=== PATIENT | female | born 1980 | race Caucasian/White ===

== ENCOUNTER 2016-11-14 15:19 | Emergency (ER) | payer OTHER ==
[2016-11-14] MEDS ORDERED: SODIUM CHLORIDE 0.9% 1,000 ML IV ONE (16:04)
[2016-11-14] MEDS ORDERED: VANCOMYCIN TROUGH DUE 1 EACH MISC MISCELLANE ONE (16:04)
--- NOTE | 2016-11-14 16:04 | ED ---
Skin/Abscess/FB HPI - General Chief complaint: Skin/Abscess/Foreign Body Stated complaint: post op infection Source: patient Mode of arrival: ambulatory Limitations: no limitations - History of Present Illness Initial comments: Patient is a 36-year-old female who presents for evaluation for concern for abscess underneath her left breast. Possible cluster as below. Patient had a breast augmentation on 10/14/2016. She stated that this was more of a left versus a breast implant. Over the last couple of days she's noted purulent drainage from the left breast at the incision site. It is open and actively draining. She was having chills and decreased appetite. No fevers. She called her plastic surgeon who recommended Keflex. She's been compliant with her for the last 3 days but no improvement. Pain is worsening and redness is worsening. The plastic surgeon recommended coming into the emergency department for IV antibiotics. She's had a few episodes of diarrhea. She has urinary symptoms at baseline secondary to interstitial cystitis. Patient otherwise denies headaches, URI symptoms, shortness breath, cough, chest pain, nausea, vomiting. - Related Data Home Medications Medication Instructions Recorded Confirmed Albuterol Inhaler [Ventolin Hfa 1 - 2 puff INHALATION RT-Q6H PRN 11/14/16 Inhaler] Cephalexin [Keflex] 500 mg PO TID 11/14/16 11/14/16 Fluconazole [Diflucan] 150 mg PO ONCE 11/14/16 11/14/16 L.acidoph,Paracasei, B.lactis 1 cap PO DAILY 11/14/16 11/14/16 [Probiotic] Lansoprazole [Prevacid] 30 mg PO DAILY 11/14/16 11/14/16 Previous Rx's Medication Instructions Recorded Ciprofloxacin HCl [Cipro] 500 mg PO Q12HR 7 Days 11/14/16 Clindamycin [Cleocin] 450 mg PO Q6H 7 Days 11/14/16 Fluconazole [Diflucan] 200 mg PO DAILY #1 tab 11/14/16 Allergies Allergy/AdvReac Type Severity Reaction Status Date / Time Iodinated Contrast Media - Allergy Anaphylaxis Verified 11/14/16 16:03 Oral and metoclopramide [From Reglan] AdvReac Severe Verified 11/14/16 16:03 Anxiety tomato AdvReac Interstitial Verified 11/14/16 16:03 Cystitis Review of Systems ROS Statement: Those systems with pertinent positive or pertinent negative responses have been documented in the HPI. ROS Other: All systems not noted in ROS Statement are negative. Past Medical History Additional Past Medical History / Comment(s): interstitial cystitis History of Any Multi-Drug Resistant Organisms: None Reported Past Surgical History: Adenoidectomy, Section, Cholecystectomy, Hysterectomy, Tonsillectomy Additional Past Surgical History / Comment(s): Breast augmentation; Breast lift ; Liposuction; Rhinoplasty Past Psychological History: No Psychological Hx Reported Smoking Status: Never smoker Past Alcohol Use History: None Reported Past Drug Use History: None Reported General Exam Limitations: no limitations General appearance: alert, in no apparent distress, other (Appears anxious. Tearful at times.) Head exam: Present: atraumatic, normocephalic, normal inspection Eye exam: Present: normal appearance, PERRL, EOMI. Absent: scleral icterus, conjunctival injection, periorbital swelling ENT exam: Present: normal exam, mucous membranes moist Neck exam: Present: normal inspection. Absent: tenderness, meningismus, lymphadenopathy Respiratory exam: Present: normal lung sounds bilaterally. Absent: respiratory distress, wheezes, rales, rhonchi, stridor Cardiovascular Exam: Present: regular rate, normal rhythm, normal heart sounds. Absent: systolic murmur, diastolic murmur, rubs, gallop, clicks GI/Abdominal exam: Present: soft, normal bowel sounds. Absent: distended, tenderness, guarding, rebound, rigid Extremities exam: Present: normal inspection, full ROM, normal capillary refill. Absent: tenderness, pedal edema, joint swelling, calf tenderness Back exam: Present: normal inspection Neurological exam: Present: alert, oriented X3, CN II-XII intact Psychiatric exam: Present: normal affect, normal mood, other (Left breast has a 4 cm x 3 cm oval-shaped fluctuance consistent with an abscess. It is open and actively draining. Tender to the touch. Warm to the touch.) Skin exam: Present: warm, dry, intact, normal color. Absent: rash Course Vital Signs 11/14/16 11/14/16 15:21 17:41 Temperature 98.8 F 98.1 F Pulse Rate 65 70 Respiratory 18 16 Rate Blood Pressure 132/94 99/54 O2 Sat by Pulse 100 100 Oximetry Medical Decision Making - Medical Decision Making Patient is a 36-year-old female who presents for evaluation for concern for abscess underneath her left breast secondary to a recent sick breast augmentation. Hemodynamically stable at this time. We'll order basic labs with a lactic acid, IV fluid bolus, 1 dose of vancomycin. 1700:Reviewed laboratory studies. Unremarkable. Called the pt's plastic surgeon , Dr. Bird ([phone]), left message with request to return call for further recommendations. 1800: Awaiting plastic surgeon return phone call. Vancomycin running. Rx bactrim. 1814:Spoke with Dr. Bird - recommending 7 day course of clindamycin and ciprofloxacin. No bactrim. OK for dose of vancomycin. Dry gauze over lesion on left breast. Does not believe it is an abscess per se but likely fat necrosis which is apparently normal. Recommending follow up in the office either tomorrow or Friday. Updated pt. requesting a tablet of Diflucan as she is prone teeth infections. Printed rx. Stable for discharge home after completion of vancomycin. Discussed signs and symptoms on when to return to the emergency department for further evaluation. Comfortable discharge home and follow-up with plastic surgeon next 24-48 hours. - Lab Data Result diagrams: 11/14/16 16:19 11/14/16 16:19 Lab Results 11/14/16 11/14/16 11/14/16 Range/Units 16:19 16:19 16:19 WBC 8.0 (3.8-10.6) k/uL RBC 4.63 (3.80-5.40) m/uL Hgb 14.1 (11.4-16.0) gm/dL Hct 43.0 (34.0-46.0) % MCV 93.0 (80.0-100.0) fL MCH 30.5 (25.0-35.0) pg MCHC 32.8 (31.0-37.0) g/dL RDW 13.4 (11.5-15.5) % Plt Count 241 (150-450) k/uL Neutrophils % 67 % Lymphocytes % 24 % Monocytes % 6 % Eosinophils % 1 % Basophils % 0 % Neutrophils # 5.3 (1.3-7.7) k/uL Lymphocytes # 2.0 (1.0-4.8) k/uL Monocytes # 0.5 (0-1.0) k/uL Eosinophils # 0.1 (0-0.7) k/uL Basophils # 0.0 (0-0.2) k/uL Sodium 142 (137-145) mmol/L Potassium 4.2 (3.5-5.1) mmol/L Chloride 107 (98-107) mmol/L Carbon Dioxide 27 (22-30) mmol/L Anion Gap 8 mmol/L BUN 15 (7-17) mg/dL Creatinine 0.91 (0.52-1.04) mg/dL Est GFR (MDRD) Af Amer >60 (>60 ml/min/1.73 sqM) Est GFR (MDRD) Non-Af >60 (>60 ml/min/1.73 sqM) Glucose 83 (74-99) mg/dL Plasma Lactic Acid Eric 1.0 (0.7-2.0) mmol/L Calcium 8.8 (8.4-10.2) mg/dL Total Bilirubin 1.0 (0.2-1.3) mg/dL AST 24 (14-36) U/L ALT 82 H (9-52) U/L Alkaline Phosphatase 48 (38-126) U/L Total Protein 7.3 (6.3-8.2) g/dL Albumin 4.1 (3.5-5.0) g/dL Disposition Clinical Impression: Wound infection after surgery Disposition: HOME SELF-CARE Condition: Good Instructions: Abscess (ED) Additional Instructions: Follow up with your plastic surgeon, Dr. Kong, within the next 24 hours. Prescriptions: Ciprofloxacin HCl [Cipro] 500 mg PO Q12HR 7 Days Clindamycin [Cleocin] 450 mg PO Q6H 7 Days Fluconazole [Diflucan] 200 mg PO DAILY #1 tab Referrals: None,Stated [Primary Care Provider] - 1-2 days
[2016-11-14 16:30] LABS: Basophils % (A) 0 %; CH 30.5; Eosinophils # (A) 0.1 k/uL (0-0.7); Eosinophils % (A) 1 %; HDW 2.23; HGB 14.1 gm/dL (11.4-16.0); Luc # (Auto) 0.13; Luc % (Auto) 2; Lymphocytes % (A) 24 %; MCH 30.5 pg (25.0-35.0); MCHC 32.8 g/dL (31.0-37.0); Mean Platelet Volume 7.2; Monocytes # (A) 0.5 k/uL (0-1.0); Monocytes % (A) 6 %; Neutrophils # (A) 5.3 k/uL (1.3-7.7); Neutrophils % (A) 67 %; RBC 4.63 m/uL (3.80-5.40); RDW 13.4 % (11.5-15.5); WBC (Perox) 8.21
[2016-11-14 16:38] LABS: ALT 82 U/L (9-52); AST 24 U/L (14-36); Alkaline Phosphatase 48 U/L (38-126); Anion Gap 8 mmol/L; Blood Urea Nitrogen 15 mg/dL (7-17); Calcium 8.8 mg/dL (8.4-10.2); Carbon Dioxide 27 mmol/L (22-30); Chloride 107 mmol/L (98-107); Glucose 83 mg/dL (74-99); Non-African American GFR(MDRD) >60 (>60 ml/min/1.73 sqM); Potassium 4.2 mmol/L (3.5-5.1); Sodium 142 mmol/L (137-145); Total Protein 7.3 g/dL (6.3-8.2)
[2016-11-14] MEDS ORDERED: IV VANCOMYCIN PER PHARMACY 1 EACH MISC MISCELLANE PRN (16:49)
[2016-11-14] MEDS ORDERED: VANCOMYCIN 1,750 MG in SODIUM CHLORIDE 0.9% 250 ML IVPB STA (16:53)
[2016-11-14] MEDS ORDERED: KETOROLAC 30 MG/ML 1 ML VIAL IVP STA (17:45)
[2016-11-14 17:48] VITALS: RESP 16; TEMP 98.1
[2016-11-14 19:23] VITALS: BP 113/59; PULSE 64
[2016-11-15] MEDS ORDERED: VANCOMYCIN 1,250 MG in SODIUM CHLORIDE 0.9% 250 ML IVPB SCH ×2
== END 2016-11-14 19:23 | disposition home or self-care (01) ==
LOC: EC 15:19
DX: T81.4XXA Infection following a procedure, initial encounter (principal); Z79.899 Other long term (current) drug therapy; Z91.041 Radiographic dye allergy status; Z91.018 Allergy to other foods; Z88.8 Allergy status to other drugs, medicaments and biological substances
CPT/HCPCS: 36415; 80053; 83605; 85025; 87040; 99283; 96365; 96366; 96375; 96361; J3370; J1885

== ENCOUNTER 2017-04-25 19:56 | Emergency (ER) | payer OTHER ==
[2017-04-25] MEDS ORDERED: SODIUM CHLORIDE 0.9% 500 ML IV STA (20:42)
--- NOTE | 2017-04-25 20:47 | ED ---
General Adult HPI - General Chief complaint: Dizziness Stated complaint: not feeling well Time Seen by Provider: 04/25/17 20:17 Source: patient Mode of arrival: ambulatory Limitations: no limitations - History of Present Illness Initial comments: This patient is a 36-year-old woman who presents with a constellation of symptoms. She states that she has not been feeling like her usual self. She has been having generalized fatigue and also a feeling like her limbs or heavy. She states when she is in bed she doesn't want to get out of bed and that she feels like she has to sleep all day. She denies any focality of the symptoms. The symptoms have been going on for a number of days, up to a couple of weeks. She states that it may be related to changes in her medications. She states her doctor has started her on progesterone and also on "adrenal support." The patient states that she has had a workup for interstitial cystitis and not feeling well and was told that a number of her hormone levels are off. She states that she also had a recent upper respiratory infection and states that she doesn't feel like she ever got back to baseline. She states that the cough is nearly cleared, and most of the congestion is gone but she does have a little bit of postnasal drip. She denies fever or chills. She denies nausea or vomiting. She has had she feels some diarrhea since starting the progesterone. She had 3 bowel movements today which she describes as soft but not seeing any blood or dark tarry material. Patient denies any change in urination, but states there is also some discomfort related to interstitial cystitis. -: days(s) Consistency: constant Improves with: none Worsens with: none - Related Data Home Medications Medication Instructions Recorded Confirmed Acetaminophen Tab [Tylenol Tab] 650 mg PO Q6H PRN 04/25/17 04/25/17 Progesterone, Micronized 1 tab PO DAILY 04/25/17 04/25/17 [Progesterone] Allergies Allergy/AdvReac Type Severity Reaction Status Date / Time Iodinated Contrast- Oral and Allergy Anaphylaxis Verified 04/25/17 20:51 IV Dye [Iodinated Contrast Media - Oral and] metoclopramide [From Reglan] AdvReac Severe Verified 04/25/17 20:51 Anxiety tomato AdvReac Interstitial Verified 04/25/17 20:51 Cystitis Review of Systems ROS Statement: Those systems with pertinent positive or pertinent negative responses have been documented in the HPI. ROS Other: All systems not noted in ROS Statement are negative. Constitutional: Reports: as per HPI, weakness. Denies: fever, chills, weight change Eyes: Denies: vision change Respiratory: Denies: cough, dyspnea Cardiovascular: Denies: chest pain, palpitations, edema, syncope Endocrine: Reports: fatigue Gastrointestinal: Reports: diarrhea. Denies: abdominal pain, nausea, vomiting Genitourinary: Reports: dysuria. Denies: hematuria Musculoskeletal: Denies: back pain Skin: Denies: rash Neurological: Denies: headache, weakness, numbness, paresthesias Past Medical History Additional Past Medical History / Comment(s): interstitial cystitis History of Any Multi-Drug Resistant Organisms: None Reported Past Surgical History: Adenoidectomy, Section, Cholecystectomy, Hysterectomy, Tonsillectomy Additional Past Surgical History / Comment(s): Breast augmentation; Breast lift ; Liposuction; Rhinoplasty Past Psychological History: No Psychological Hx Reported Smoking Status: Never smoker Past Alcohol Use History: None Reported Past Drug Use History: None Reported General Exam Limitations: no limitations General appearance: alert, in no apparent distress Head exam: Present: atraumatic, normocephalic Eye exam: Present: normal appearance. Absent: scleral icterus, conjunctival injection ENT exam: Present: normal oropharynx, mucous membranes moist Respiratory exam: Present: normal lung sounds bilaterally. Absent: respiratory distress, wheezes, rales, rhonchi, stridor Cardiovascular Exam: Present: regular rate, normal rhythm, normal heart sounds. Absent: systolic murmur, diastolic murmur, rubs, gallop GI/Abdominal exam: Present: soft. Absent: distended, tenderness, guarding, rebound, mass Extremities exam: Present: normal inspection, normal capillary refill. Absent: pedal edema, calf tenderness Back exam: Present: normal inspection. Absent: CVA tenderness (R), CVA tenderness (L) Neurological exam: Present: alert. Absent: motor sensory deficit Skin exam: Present: warm, dry, intact, normal color. Absent: rash Course Vital Signs 04/25/17 04/25/17 20:08 22:13 Temperature 98.6 F 98.4 F Pulse Rate 89 66 Respiratory 16 18 Rate Blood Pressure 137/62 113/65 O2 Sat by Pulse 98 99 Oximetry EKG Findings - EKG Results: EKG: interpreted by ERMD, sinus rhythm (With sinus arrhythmia), normal axis, normal QRS, normal ST/T, no acute changes EKG shows: bradycardia (Rate approximately 56 bpm) - CO, Pacemaker, Normal: Normal tracing: normal tracing Medical Decision Making - Lab Data Result diagrams: 04/25/17 21:13 04/25/17 21:13 Lab Results 04/25/17 04/25/17 04/25/17 Range/Units 20:50 21:13 21:13 WBC 11.7 H (3.8-10.6) k/uL RBC 5.02 (3.80-5.40) m/uL Hgb 15.4 (11.4-16.0) gm/dL Hct 47.0 H (34.0-46.0) % MCV 93.8 (80.0-100.0) fL MCH 30.7 (25.0-35.0) pg MCHC 32.7 (31.0-37.0) g/dL RDW 12.6 (11.5-15.5) % Plt Count 304 (150-450) k/uL Neutrophils % 78 % Lymphocytes % 17 % Monocytes % 4 % Eosinophils % 0 % Basophils % 0 % Neutrophils # 9.1 H (1.3-7.7) k/uL Lymphocytes # 1.9 (1.0-4.8) k/uL Monocytes # 0.5 (0-1.0) k/uL Eosinophils # 0.0 (0-0.7) k/uL Basophils # 0.0 (0-0.2) k/uL Sodium 140 (137-145) mmol/L Potassium 4.0 (3.5-5.1) mmol/L Chloride 104 (98-107) mmol/L Carbon Dioxide 25 (22-30) mmol/L Anion Gap 11 mmol/L BUN 8 (7-17) mg/dL Creatinine 0.82 (0.52-1.04) mg/dL Est GFR (MDRD) Af Amer >60 (>60 ml/min/1.73 sqM) Est GFR (MDRD) Non-Af >60 (>60 ml/min/1.73 sqM) Glucose 80 (74-99) mg/dL Calcium 9.2 (8.4-10.2) mg/dL Total Bilirubin 0.7 (0.2-1.3) mg/dL AST 26 (14-36) U/L ALT 32 (9-52) U/L Alkaline Phosphatase 69 (38-126) U/L Total Protein 7.8 (6.3-8.2) g/dL Albumin 4.4 (3.5-5.0) g/dL Urine Color Colorless Urine Appearance Clear (Clear) Urine pH 5.5 (5.0-8.0) Ur Specific [place] 1.001 (1.001-1.035) Urine Protein Negative (Negative) Urine Glucose (UA) Negative (Negative) Urine Ketones Negative (Negative) Urine Blood Negative (Negative) Urine Nitrite Negative (Negative) Urine Bilirubin Negative (Negative) Urine Urobilinogen <2.0 (<2.0) mg/dL Ur Leukocyte Esterase Negative (Negative) Disposition Clinical Impression: Fatigue Disposition: HOME SELF-CARE Condition: Good Instructions: Fatigue (ED) Referrals: Denise Coon MD [Primary Care Provider] - 1-2 days
[2017-04-25 20:59] LABS: Appearance,Urine Clear (Clear); Bilirubin,Urine Negative (Negative); Glucose,Urine (UA) Negative (Negative); Ketones,Urine Negative (Negative); Leukocyte Esterase,Urine Negative (Negative); Nitrite,Urine Negative (Negative); PH, Urine 5.5 (5.0-8.0); Protein,Urine Negative (Negative); UA Billing (MACRO vs. MICRO) CHEM; Urobilinogen,Urine <2.0 mg/dL (<2.0)
[2017-04-25 21:07] LABS: Specific Gravity,Urine 1.001 (1.001-1.035)
[2017-04-25] MEDS ORDERED: KETOROLAC 30 MG/ML 1 ML VIAL IVP STA (21:35)
[2017-04-25 21:38] LABS: Basophils % (A) 0 %; CHCM 33.2; Eosinophils % (A) 0 %; HDW 2.38; HGB 15.4 gm/dL (11.4-16.0); Luc # (Auto) 0.15; Luc % (Auto) 1; Lymphocytes # (A) 1.9 k/uL (1.0-4.8); Lymphocytes % (A) 17 %; MCH 30.7 pg (25.0-35.0); MCHC 32.7 g/dL (31.0-37.0); MCV 93.8 fL (80.0-100.0); Monocytes # (A) 0.5 k/uL (0-1.0); Monocytes % (A) 4 %; Neutrophils # (A) 9.1 k/uL (1.3-7.7); Neutrophils % (A) 78 %; RBC 5.02 m/uL (3.80-5.40); RDW 12.6 % (11.5-15.5); WBC 11.7 k/uL (3.8-10.6); WBC (Perox) 11.61
[2017-04-25 21:56] LABS: ALT 32 U/L (9-52); AST 26 U/L (14-36); Alkaline Phosphatase 69 U/L (38-126); Anion Gap 11 mmol/L; Blood Urea Nitrogen 8 mg/dL (7-17); Calcium 9.2 mg/dL (8.4-10.2); Carbon Dioxide 25 mmol/L (22-30); Chloride 104 mmol/L (98-107); Glucose 80 mg/dL (74-99); Non-African American GFR(MDRD) >60 (>60 ml/min/1.73 sqM); Sodium 140 mmol/L (137-145); Total Bilirubin 0.7 mg/dL (0.2-1.3); Total Protein 7.8 g/dL (6.3-8.2)
[2017-04-25 22:30] VITALS: BP 122/63; PULSE 67; RESP 16; TEMP 97.4
== END 2017-04-25 22:30 | disposition home or self-care (01) ==
LOC: EC 19:56
DX: R53.83 Other fatigue (principal); R19.7 Diarrhea, unspecified; R00.1 Bradycardia, unspecified; Z90.49 Acquired absence of other specified parts of digestive tract; Z91.018 Allergy to other foods; Z88.8 Allergy status to other drugs, medicaments and biological substances; Z91.041 Radiographic dye allergy status; Z92.23 Personal history of estrogen therapy
CPT/HCPCS: 99284 ×2; 96374 ×2; 96361 ×2; 36415; 93005; 80053; 85025; 81003; J1885

== ENCOUNTER 2018-03-23 01:03 | Emergency (ER) | payer OTHER ==
[2018-03-23] MEDS ORDERED: SODIUM CHLORIDE 0.9% 1,000 ML IV STA (01:30)
--- NOTE | 2018-03-23 01:32 | ED ---
Abdominal Pain HPI - General Chief Complaint: Abdominal Pain Stated Complaint: ABD PAIN Time Seen by Provider: 03/23/18 01:30 Source: patient Mode of arrival: ambulatory Limitations: no limitations - History of Present Illness Initial Comments: Patient is a 37-year-old female with a past medical history of gallstone pancreatitis approximately 10 years ago presents the emergency department today for evaluation of sudden onset burning epigastric abdominal pain radiating to her left flank and back. Patient reports that this pain is identical to her previous episode of pancreatitis. Patient reports nausea but no vomiting, no change in bowel or bladder habits, no hematuria or history of kidney stones. Patient reports that this pain started suddenly this evening, prior to this she had been her usual state of health. She's been eating and drinking her normal diet. Patient does report that she has recently been diagnosed with chronic Lyme disease and is being treated by a specialist in [place]. She reports that she gives herself IM Rocephin 2 times a week, she is on oral Biaxin 2 times daily and reports that she's been given multiple supplements. She states she can't name all of the supplements but that she takes approximately 12 pills in the morning 12 pills at night. She reports that she's been taking these with food but not always a full stomach. Patient denies any history of acid reflux or any GI disease. She has never been seen by superintendent pier for any reason. - Related Data Home Medications Medication Instructions Recorded Confirmed Acetaminophen Tab [Tylenol Tab] 650 mg PO Q6H PRN 04/25/17 04/25/17 Progesterone, Micronized 1 tab PO DAILY 04/25/17 04/25/17 [Progesterone] Allergies Allergy/AdvReac Type Severity Reaction Status Date / Time Iodinated Contrast- Oral and Allergy Anaphylaxis Verified 03/23/18 01:08 IV Dye [Iodinated Contrast Media - Oral and] metoclopramide [From Reglan] AdvReac Severe Verified 03/23/18 01:08 Anxiety tomato AdvReac Interstitial Verified 03/23/18 01:08 Cystitis Review of Systems ROS Statement: Those systems with pertinent positive or pertinent negative responses have been documented in the HPI. ROS Other: All systems not noted in ROS Statement are negative. Past Medical History Additional Past Medical History / Comment(s): interstitial cystitis. lyme disease. pancreatitis. History of Any Multi-Drug Resistant Organisms: None Reported Past Surgical History: Adenoidectomy, Section, Cholecystectomy, Hysterectomy, Tonsillectomy Additional Past Surgical History / Comment(s): Breast augmentation; Breast lift ; Liposuction; Rhinoplasty Past Psychological History: No Psychological Hx Reported Smoking Status: Never smoker Past Alcohol Use History: None Reported Past Drug Use History: None Reported General Exam - General Exam Comments Initial Comments: GENERAL: Patient is well-developed and well-nourished. Patient is nontoxic and well- hydrated and is in mild distress. HENT: Normocephalic, Atraumatic. Neck is soft and supple. No significant lymphadenopathy is noted. Oropharynx is clear. Moist mucous membranes. Neck has full range of motion without eliciting any pain. EYES: The sclera were anicteric and conjunctiva were pink and moist. Extraocular movements were intact and pupils were equal round and reactive to light. Eyelids were unremarkable. PULMONARY: Unlabored respirations. Good breath sounds bilaterally. No audible rales rhonchi or wheezing was noted. CARDIOVASCULAR: There is a regular rate and rhythm without any murmurs gallops or rubs. ABDOMEN: Soft with normal bowel sounds. Mild tenderness to palpation bilateral upper quadrants, tenderness to palpation of the left flank SKIN: Skin is clear with no lesions or rashes and otherwise unremarkable. Multiple tattoos. NEUROLOGIC: Patient is alert and oriented x3. Cranial nerves II through XII are grossly intact. Motor and sensory are also intact. Normal speech, volume and content. Symmetrical smile. MUSCULOSKELETAL: Normal extremities with adequate strength and full range of motion. No lower extremity swelling or edema. No calf tenderness. LYMPHATICS: No significant lymphadenopathy is noted PSYCHIATRIC: Normal psychiatric evaluation. Limitations: no limitations Limitations: no limitations Course Vital Signs 03/23/18 03/23/18 01:05 04:24 Temperature 97.7 F 98 F Pulse Rate 71 77 Respiratory 24 18 Rate Blood Pressure 141/83 122/74 O2 Sat by Pulse 99 97 Oximetry - Reevaluation(s) Reevaluation #1: Patient was reevaluated, and updated on CT findings. She reports significant improvement after Toradol but is concerned that her pain will return upon discharge. Advised the patient that based on her negative labs and CT I have a high suspicion that this is likely gastritis or possibly an ulcer. Will give a dose of Pepcid. 03/23/18 04:14 Medical Decision Making - Medical Decision Making The patient was seen and evaluated, history is obtained from the patient and significant other at bedside Patient with a sudden onset of severe burning abdominal and left flank pain Labs and imaging were ordered, Toradol for pain Labs unremarkable, a computed tomography scan of the abdomen was ordered to evaluate for the patient's persistent pain Computed tomography scan with no acute findings Results discussed with the patient. After further questioning the patient does admit that she has been taking her supplements with less than a full stomach, she's not certain of what all her supplements are. I advised the patient she should contact her infectious disease specialist that is treating her chronic Lyme disease to discuss whether or not any of the supplements could be causing her symptoms. Also advised the patient that she should spread out taking her supplements throughout the day and take them with small meals rather than taking 12 pills at one time. I offered the patient multiple treatment modalities for gastritis including a PPI and Carafate. However patient is resistant to trying any new medications due to the multiple medication regimen she is currently on for the Lyme disease. - Lab Data Result diagrams: 03/23/18 01:34 03/23/18 01:34 Lab Results 03/23/18 03/23/18 03/23/18 Range/Units 01:34 01:34 01:46 WBC 7.7 (3.8-10.6) k/uL RBC 4.57 (3.80-5.40) m/uL Hgb 13.9 (11.4-16.0) gm/dL Hct 41.4 (34.0-46.0) % MCV 90.5 (80.0-100.0) fL MCH 30.4 (25.0-35.0) pg MCHC 33.5 (31.0-37.0) g/dL RDW 12.7 (11.5-15.5) % Plt Count 210 (150-450) k/uL Neutrophils % 51 % Lymphocytes % 34 % Monocytes % 7 % Eosinophils % 6 % Basophils % 1 % Neutrophils # 3.9 (1.3-7.7) k/uL Lymphocytes # 2.6 (1.0-4.8) k/uL Monocytes # 0.6 (0-1.0) k/uL Eosinophils # 0.4 (0-0.7) k/uL Basophils # 0.0 (0-0.2) k/uL Sodium 139 (137-145) mmol/L Potassium 3.7 (3.5-5.1) mmol/L Chloride 107 (98-107) mmol/L Carbon Dioxide 27 (22-30) mmol/L Anion Gap 5 mmol/L BUN 8 (7-17) mg/dL Creatinine 0.80 (0.52-1.04) mg/dL Est GFR (CKD-EPI)AfAm >90 (>60 ml/min/1.73 sqM) Est GFR (CKD-EPI)NonAf >90 (>60 ml/min/1.73 sqM) Glucose 85 (74-99) mg/dL Calcium 8.7 (8.4-10.2) mg/dL Total Bilirubin 0.7 (0.2-1.3) mg/dL AST 31 (14-36) U/L ALT 32 (9-52) U/L Alkaline Phosphatase 63 (38-126) U/L Total Protein 6.2 L (6.3-8.2) g/dL Albumin 3.5 (3.5-5.0) g/dL Lipase 211 (23-300) U/L Urine Color Urine Appearance (Clear) Urine pH (5.0-8.0) Ur Specific [place] (1.001-1.035) Urine Protein (Negative) Urine Glucose (UA) (Negative) Urine Ketones (Negative) Urine Blood (Negative) Urine Nitrite (Negative) Urine Bilirubin (Negative) Urine Urobilinogen (<2.0) mg/dL Ur Leukocyte Esterase (Negative) Urine HCG, Qual Not Detected (Not Detectd) 03/23/18 Range/Units 01:52 WBC (3.8-10.6) k/uL RBC (3.80-5.40) m/uL Hgb (11.4-16.0) gm/dL Hct (34.0-46.0) % MCV (80.0-100.0) fL MCH (25.0-35.0) pg MCHC (31.0-37.0) g/dL RDW (11.5-15.5) % Plt Count (150-450) k/uL Neutrophils % % Lymphocytes % % Monocytes % % Eosinophils % % Basophils % % Neutrophils # (1.3-7.7) k/uL Lymphocytes # (1.0-4.8) k/uL Monocytes # (0-1.0) k/uL Eosinophils # (0-0.7) k/uL Basophils # (0-0.2) k/uL Sodium (137-145) mmol/L Potassium (3.5-5.1) mmol/L Chloride (98-107) mmol/L Carbon Dioxide (22-30) mmol/L Anion Gap mmol/L BUN (7-17) mg/dL Creatinine (0.52-1.04) mg/dL Est GFR (CKD-EPI)AfAm (>60 ml/min/1.73 sqM) Est GFR (CKD-EPI)NonAf (>60 ml/min/1.73 sqM) Glucose (74-99) mg/dL Calcium (8.4-10.2) mg/dL Total Bilirubin (0.2-1.3) mg/dL AST (14-36) U/L ALT (9-52) U/L Alkaline Phosphatase (38-126) U/L Total Protein (6.3-8.2) g/dL Albumin (3.5-5.0) g/dL Lipase (23-300) U/L Urine Color Colorless Urine Appearance Clear (Clear) Urine pH 6.5 (5.0-8.0) Ur Specific [place] 1.004 (1.001-1.035) Urine Protein Negative (Negative) Urine Glucose (UA) Negative (Negative) Urine Ketones Negative (Negative) Urine Blood Negative (Negative) Urine Nitrite Negative (Negative) Urine Bilirubin Negative (Negative) Urine Urobilinogen <2.0 (<2.0) mg/dL Ur Leukocyte Esterase Negative (Negative) Urine HCG, Qual (Not Detectd) Disposition Clinical Impression: Abdominal pain Disposition: HOME SELF-CARE Condition: Good Instructions: Abdominal Pain (ED) Is patient prescribed a controlled substance at d/c from ED?: No Referrals: Denise Coon MD [Primary Care Provider] - 1-2 days Obdulio Dewitt MD [STAFF PHYSICIAN] - 1-2 days Time of Disposition: 04:17
[2018-03-23] MEDS ORDERED: KETOROLAC 30 MG/ML 1 ML VIAL IVP ONE (01:38)
[2018-03-23] MEDS ORDERED: ONDANSETRON 4 MG/2 ML VIAL IVP STA (01:38)
[2018-03-23 01:46] LABS: Basophils % (A) 1 %; Eosinophils # (A) 0.4 k/uL (0-0.7); Eosinophils % (A) 6 %; HCT 41.4 % (34.0-46.0); HGB 13.9 gm/dL (11.4-16.0); Lymphocytes # (A) 2.6 k/uL (1.0-4.8); Lymphocytes % (A) 34 %; MCH 30.4 pg (25.0-35.0); MCHC 33.5 g/dL (31.0-37.0); MCV 90.5 fL (80.0-100.0); Mean Platelet Volume 7.1; Monocytes # (A) 0.6 k/uL (0-1.0); Monocytes % (A) 7 %; Neutrophils # (A) 3.9 k/uL (1.3-7.7); Neutrophils % (A) 51 %; Platelet Count 210 k/uL (150-450); RBC 4.57 m/uL (3.80-5.40); RDW 12.7 % (11.5-15.5); WBC 7.7 k/uL (3.8-10.6)
[2018-03-23 01:54] LABS: ALT 32 U/L (9-52); AST 31 U/L (14-36); Albumin 3.5 g/dL (3.5-5.0); Alkaline Phosphatase 63 U/L (38-126); Anion Gap 5 mmol/L; Blood Urea Nitrogen 8 mg/dL (7-17); Calcium 8.7 mg/dL (8.4-10.2); Carbon Dioxide 27 mmol/L (22-30); Chloride 107 mmol/L (98-107); Glucose 85 mg/dL (74-99); Lipase 211 U/L (23-300); Potassium 3.7 mmol/L (3.5-5.1); Sodium 139 mmol/L (137-145); Total Bilirubin 0.7 mg/dL (0.2-1.3); Total Protein 6.2 g/dL (6.3-8.2)
[2018-03-23 01:59] LABS: Appearance,Urine Clear (Clear); Bilirubin,Urine Negative (Negative); Blood,Urine Negative (Negative); Color,Urine Colorless; Glucose,Urine (UA) Negative (Negative); Ketones,Urine Negative (Negative); Leukocyte Esterase,Urine Negative (Negative); Nitrite,Urine Negative (Negative); PH, Urine 6.5 (5.0-8.0); Protein,Urine Negative (Negative); Specific Gravity,Urine 1.004 (1.001-1.035); Urobilinogen,Urine <2.0 mg/dL (<2.0)
--- NOTE | 2018-03-23 03:27 | CT ---
EXAMINATION TYPE: CT abdomen pelvis wo con DATE OF EXAM: 03/23/2018 COMPARISON: None HISTORY: No prior, gen abd and back pain, history of pancreatitis and interstitial cystitis, history of appendectomy, cholecystectomy, AND hysterectomy CT DLP: 310.10 mGycm Automated exposure control for dose reduction was used. TECHNIQUE: Helical acquisition of images was performed from the lung bases through the pelvis. FINDINGS: Lung bases are clear. There is no pleural effusion. Heart size is normal. Liver spleen pancreas appear normal. There are clips from cholecystectomy. There are no pancreatic ca lcifications. Bile ducts are not dilated. There is no adrenal mass. There is no definite renal calculus. There is no hydronephrosis. Kidneys prieto ve normal size. There is no retroperitoneal adenopathy. There are numerous clips in the pelvis. Bladd er distends smoothly. There is no pelvic mass. There is no ascites. There is no free air. Lumbar spin e appears intact. There is no evidence of a pelvic mass. There is no intestinal wall thickening. Ther e are no dilated loops. Hysterectomy is noted. IMPRESSION: NEGATIVE CT SCAN OF THE ABDOMEN AND PELVIS. NO EVIDENCE OF PANCREATITIS. NO RENAL STONE OR OBSTRUCTIO N.
[2018-03-23] MEDS ORDERED: FAMOTIDINE 20 MG/2 ML VIAL IV STA (04:07)
[2018-03-23 04:25] VITALS: BP 122/74; PULSE 77; RESP 18; TEMP 98
== END 2018-03-23 04:25 | disposition home or self-care (01) ==
LOC: EC 01:03
DX: R10.13 Epigastric pain (principal); R11.0 Nausea; A69.20 Lyme disease, unspecified; Z91.041 Radiographic dye allergy status; Z88.8 Allergy status to other drugs, medicaments and biological substances; Z91.018 Allergy to other foods; Z87.19 Personal history of other diseases of the digestive system; Z90.49 Acquired absence of other specified parts of digestive tract; Z90.710 Acquired absence of both cervix and uterus
CPT/HCPCS: 36415; 80053; 83690; 85025; 81003; 81025; 74176; 99284; 96374; 96375 ×2; 96361; J2405; J1885